=== PATIENT | male | born 1960 | race Caucasian/White ===

== ENCOUNTER 2017-11-01 12:51 | Inpatient (IN) | payer BC, OTHER ==
[~2017-11-01] VITALS: Ht 170.2 cm; Wt 85.1 kg
[2017-11-01 13:54] LABS: Basophils # (auto) 0.1 uL; Eosinophils # (auto) 0.2 uL; Lymphocytes # (auto) 0.9 uL; Monocytes % (auto) 9.3 % (0.0-12.0); Neutrophils % (auto) 80.4 % (37.0-80.0); Nucleated Red Blood Cells % 0.1 %
[2017-11-01 13:56] LABS: Basophils % (auto) 0.9 % (0.0-2.0); Eosinophils % (auto) 1.5 % (0.0-7.0); Hematocrit 38.7 % (41.0-53.0); Lymphocytes % (auto) 7.9 % (10.0-50.0); Mean Corpuscular Hemoglobin 22.6 pg (28.0-32.0); Mean Corpuscular Volume 72.8 fL (80.0-100.0); Neutrophils # (auto) 8.9 uL; Platelet Count (auto) 256 10^3/uL (140-450); Red Blood Cells 5.32 10^6/uL (4.5-5.90); Red Cell Distribution Width 20.2 % (11.8-14.3)
[2017-11-01 14:11] LABS: Albumin 3.6 g/dL (3.4-5.0); BUN/Creatinine Ratio 15.1; Bilirubin, Total 0.6 mg/dL (0.2-1.0); Potassium 4.7 mmol/L (3.5-5.1); Total Protein 8.1 g/dL (6.4-8.2)
[2017-11-01] MEDS ORDERED: cefTRIAXone 1GM/10ml StH20 or NS KIT IVpush IV ONE (15:45)
[2017-11-01] MEDS ORDERED: metroNIDAZOLE 500MG/100ML 100 ML IV ONE (15:45)
[2017-11-01] MEDS ORDERED: MORPHINE SULF INJ 2 MG/ML SYRINGE 1ML IV ONE (15:45)
[2017-11-01] MEDS ORDERED: ONDANSETRON HCL 4 MG/2 ML VIAL IV ONE (16:00)
[2017-11-01 16:05] LABS: INR 1.07 (0.9-1.15); Partial Thromboplastin Time 29.8 sec (23.78-33.04); Prothrombin Time 11.4 sec (9.27-12.13)
[2017-11-01 17:18] LABS: Urine Bacteria NONE SEEN /hpf (None Seen); Urine Blood Negative /uL (Negative); Urine Hyaline Cast FEW /lpf (0 - 2); Urine Mucus FEW (None Seen); Urine Specific Gravity 1.023 (1.001-1.035); Urine WBC 1 /hpf (0 - 3)
[2017-11-01] MEDS ORDERED: MORPHINE SULF INJ 2 MG/ML SYRINGE 1ML IV PRN (17:45)
[2017-11-01] MEDS ORDERED: NITROGLYCERIN 0.4 MG SL TAB SL PRN (17:45)
[2017-11-01] MEDS ORDERED: PANTOPRAZOLE 40 MG/10 ML VIAL IV ONE (17:45)
[2017-11-01] MEDS ORDERED: LEVOFLOXACIN 500MG 100 ML IV ONE (17:45)
[2017-11-01] MEDS ORDERED: LORazepam 2MG/ML-1ML VIAL IV PRN ×2 (17:45→18:00)
[2017-11-01] MEDS ORDERED: SODIUM CHLORIDE 0.9% 1,000 ML IV ONE (17:45)
[2017-11-01] MEDS ORDERED: THIAMINE 100mg/ml INJ (200mg/2ml VIAL) IV ONE (18:00)
[2017-11-01] MEDS: SODIUM CHLORIDE 0.9% 1,000 ML IV SCH (18:45)
[2017-11-01] MEDS ORDERED: ACETAMINOPHEN 325 MG TAB PO ONE ×2 (19:00→19:45)
[2017-11-01] MEDS: metroNIDAZOLE 500MG/100ML 100 ML IV SCH (22:18)
[2017-11-01] MEDS: MORPHINE SULF INJ 2 MG/ML SYRINGE 1ML IV PRN (22:23)
[2017-11-02] MEDS: SODIUM CHLORIDE 0.9% 1,000 ML IV SCH ×2 (01:47→10:46)
[2017-11-02] MEDS ORDERED: MORPHINE SULFATE 4 MG/ML SYR/VIAL ONE (05:44)
[2017-11-02] MEDS: metroNIDAZOLE 500MG/100ML 100 ML IV SCH ×3 (05:49→20:54)
[2017-11-02] MEDS: MORPHINE SULF INJ 2 MG/ML SYRINGE 1ML IV PRN ×4 (05:49→20:52)
[2017-11-02 05:53] LABS: Basophils # (auto) 0.2 uL; Lymphocytes # (auto) 0.5 uL; White Blood Cell 10.5 10^3/uL (4.4-10.8)
[2017-11-02 05:57] LABS: Basophils % (auto) 1.6 % (0.0-2.0); Eosinophils # (auto) 0 uL; Eosinophils % (auto) 0.4 % (0.0-7.0); Hematocrit 34.2 % (41.0-53.0); Hemoglobin 10.7 g/dL (13.5-17.5); Lymphocytes % (auto) 4.9 % (10.0-50.0); Mean Corpuscular Hemoglobin 23.2 pg (28.0-32.0); Mean Corpuscular Hgb Conc. 31.3 g/dL (32.0-36.0); Mean Corpuscular Volume 74.2 fL (80.0-100.0); Monocytes # (auto) 0.8 uL; Monocytes % (auto) 7.4 % (0.0-12.0); Neutrophils % (auto) 85.7 % (37.0-80.0); Nucleated Red Blood Cells % 0.1 %; Platelet Count (auto) 224 10^3/uL (140-450); Red Blood Cells 4.61 10^6/uL (4.5-5.90)
[2017-11-02 06:04] LABS: Red Cell Distribution Width 20.4 % (11.8-14.3)
[2017-11-02 06:15] LABS: BUN/Creatinine Ratio 15.1; Bilirubin, Total 0.7 mg/dL (0.2-1.0); Potassium 4.3 mmol/L (3.5-5.1); Total Protein 6.9 g/dL (6.4-8.2)
[2017-11-02] MEDS: LEVOFLOXACIN 500MG 100 ML IV SCH (10:46)
[2017-11-02] MEDS: THIAMINE 100mg/ml INJ (200mg/2ml VIAL) IV SCH (10:46)
[2017-11-02] MEDS: PANTOPRAZOLE 40 MG/10 ML VIAL IV SCH (10:46)
[2017-11-02] MEDS: PROMETHAZINE HCL 25 MG/ML 1ML IV PRN ×2 (10:46→16:30)
[2017-11-02] MEDS ORDERED: D5W/SOD CHL 0.45%/KCL 40MEQ 1,000 ML IV ONE (11:00)
[2017-11-02] MEDS ORDERED: SOD CHL 0.45% 1,000 ML IV ONE (11:00)
[2017-11-02] MEDS ORDERED: TPN PER PHARMACY 0 ML IV SCH (11:15)
[2017-11-02 11:39] LABS: Magnesium 2.5 mg/dL (1.6-2.6); Phosphorus 2.2 mg/dL (2.5-4.90)
[2017-11-02] MEDS ORDERED: SODIUM PHOSPHATES 24 MEQ in SODIUM CHL 0.9% 100 ML IV ONE (13:30)
[2017-11-02] MEDS ORDERED: LIDOCAINE 1% (LOCAL ANESTH.) PF 5ml SDV ID ONE (15:30)
[2017-11-02 18:15] VITALS: BP 134/78
[2017-11-02 20:00] VITALS: BP 135/83
[2017-11-02] MEDS ORDERED: PPN PER PHARMACY IV NR ×7 (20:00)
[2017-11-02] MEDS: SODIUM CHLOR 0.9% PF (SALINE LOCK) 10ML VIAL/SYR IV SCH (20:57)
[2017-11-02 22:00] VITALS: BP_SYST 114; BP_SYST 135; BP_DIAS 63; BP_DIAS 83
[2017-11-02] MEDS: InsuLIN REG 1unit/0.01ml Soln (100units/ml) SC SCH (23:32)
[2017-11-02] MEDS: ACCU-CHEK COMFORT CURVE STRIP VI SCH (23:32)
[2017-11-03] MEDS ORDERED: DEXTROSE (50%) 50ML SYRG IV SCH
[2017-11-03] MEDS: MORPHINE SULF INJ 2 MG/ML SYRINGE 1ML IV PRN ×4 (00:44→21:59)
[2017-11-03] MEDS ORDERED: ACETAMINOPHEN 650 mg PER 20 mL UD PO ONE (01:00)
[2017-11-03] MEDS: metroNIDAZOLE 500MG/100ML 100 ML IV SCH ×3 (05:46→21:39)
[2017-11-03 05:51] VITALS: BP 151/69
[2017-11-03] MEDS: InsuLIN REG 1unit/0.01ml Soln (100units/ml) SC SCH ×3 (06:04→18:15)
[2017-11-03] MEDS: ACCU-CHEK COMFORT CURVE STRIP VI SCH ×3 (06:05→18:15)
[2017-11-03] MEDS ORDERED: POVIDONE IODINE 10 % TOPICAL OINT 30GM TOP ONE (06:39)
[2017-11-03] MEDS ORDERED: ONDANSETRON HCL 4 MG/2 ML VIAL IV ONE (07:00)
[2017-11-03] MEDS ORDERED: NALOXONE HCL 0.4 MG/ML VIAL IV PRN (07:00)
[2017-11-03] MEDS ORDERED: FLUMAZENIL 0.1 MG/ML INJ 10ML MDV IV ONE (07:00)
[2017-11-03] MEDS ORDERED: ePHEDrine SULFATE 50 MG/ML AMP IV PRN (07:00)
[2017-11-03] MEDS ORDERED: METOCLOPRAMIDE HCL 5MG/ml INJ 2ml VIAL IV ONE (07:00)
[2017-11-03] MEDS ORDERED: LABETALOL HCL 5 MG/ML 4ML SYRINGE IV PRN (07:00)
[2017-11-03] MEDS ORDERED: KETOROLAC TROMETH 30 MG/ML 1ML VIAL IV ONE (07:00)
[2017-11-03] MEDS ORDERED: ePHEDrine SULFATE 50 MG/ML AMP ONE (07:05)
[2017-11-03] MEDS ORDERED: LIDOCAINE HCL 2 %PF INJ 10ML AMP IJ ONE (07:05)
[2017-11-03] MEDS ORDERED: ROCURONIUM 10MG/ML 10ML VIAL IV ONE (07:05)
[2017-11-03] MEDS ORDERED: fentaNYL CITRATE 100 MCG/2 ML VL ONE ×2 (07:05→08:16)
[2017-11-03] MEDS ORDERED: PROPOFOL 10 MG/ML 20 ML IV ONE (07:05)
[2017-11-03] MEDS ORDERED: MIDAZOLAM HCL 1MG/1ML-2 ML VIAL ONE (07:05)
[2017-11-03] MEDS ORDERED: LEVOFLOXACIN 500MG 100 ML IV ONE (07:21)
[2017-11-03] MEDS ORDERED: GLYCOPYRROLATE 0.2 MG/ML 1ML VIAL ONE (09:08)
[2017-11-03] MEDS ORDERED: NEOSTIGMINE 1 MG/ML INJ (10mg/10ML VIAL) ONE (09:08)
[2017-11-03] MEDS: HYDROmorphone HCL 2 MG/ML VL IV PRN ×4 (09:50→10:32)
[2017-11-03] MEDS ORDERED: IPRATROPIUM BROM 0.5 MG/2.5ML INH SOL ONE (09:59)
[2017-11-03] MEDS ORDERED: ALBUTEROL SULF 2.5 MG/0.5ML(0.5%) NEB SOLN ONE (09:59)
[2017-11-03] MEDS: SODIUM CHLOR 0.9% PF (SALINE LOCK) 10ML VIAL/SYR IV SCH ×2 (10:00→21:39)
[2017-11-03] MEDS: PANTOPRAZOLE 40 MG/10 ML VIAL IV SCH (10:00)
[2017-11-03] MEDS: THIAMINE 100mg/ml INJ (200mg/2ml VIAL) IV SCH (10:00)
[2017-11-03] MEDS ORDERED: IPRATROPIUM BROM 0.5 MG/2.5ML INH SOL NEB ONE (10:00)
[2017-11-03] MEDS ORDERED: ALBUTEROL SULF 2.5 MG/0.5ML(0.5%) NEB SOLN NEB ONE (10:00)
[2017-11-03] MEDS: LEVOFLOXACIN 500MG 100 ML IV SCH (10:00)
[2017-11-03 11:01] LABS: Albumin 2.5 g/dL (3.4-5.0); Bilirubin, Total 0.4 mg/dL (0.2-1.0); Calcium 7.8 mg/dL (8.5-10.1); Magnesium 2.5 mg/dL (1.6-2.6); Phosphorus 2.9 mg/dL (2.5-4.90); Pre Albumin 8.2 mg/dL (20.0-40.0); Total Protein 6.4 g/dL (6.4-8.2)
[2017-11-03 12:03] LABS: Eosinophils # (auto) 0 uL; Lymphocytes # (auto) 0.2 uL
[2017-11-03 12:05] LABS: Basophils # (auto) 0 uL; Basophils % (auto) 0.5 % (0.0-2.0); Eosinophils % (auto) 0.1 % (0.0-7.0); Hematocrit 33.3 % (41.0-53.0); Hemoglobin 10.4 g/dL (13.5-17.5); Lymphocytes % (auto) 2.4 % (10.0-50.0); Mean Corpuscular Hgb Conc. 31.3 g/dL (32.0-36.0); Mean Corpuscular Volume 73.3 fL (80.0-100.0); Monocytes # (auto) 0.9 uL; Monocytes % (auto) 8.7 % (0.0-12.0); Neutrophils % (auto) 88.3 % (37.0-80.0); Platelet Count (auto) 237 10^3/uL (140-450); Red Blood Cells 4.54 10^6/uL (4.5-5.90); Red Cell Distribution Width 19.9 % (11.8-14.3); White Blood Cell 10.2 10^3/uL (4.4-10.8)
[2017-11-03 13:00] VITALS: BP 122/76
[2017-11-03] MEDS ORDERED: LABETALOL HCL 5 MG/ML ML 20ML VIAL IV PRN (15:30)
[2017-11-03] MEDS: KETOROLAC TROMETH 30 MG/ML 1ML VIAL IV PRN (16:54)
[2017-11-03 17:00] VITALS: BP 150/81
[2017-11-03] MEDS: POTASSIUM ACETATE IV NR ×9 (20:05)
[2017-11-03] MEDS: FAT EMULSION IV NR ×9 (20:05)
[2017-11-03] MEDS: SODIUM PHOSPHATES IV NR ×9 (20:05)
[2017-11-03] MEDS: [UNRECOGNIZED DRUG - OTHER] IV NR ×9 (20:05)
[2017-11-03 22:00] VITALS: BP 146/78
[2017-11-04] MEDS: ACCU-CHEK COMFORT CURVE STRIP VI SCH ×4 (00:18→18:00)
[2017-11-04] MEDS: InsuLIN REG 1unit/0.01ml Soln (100units/ml) SC SCH ×4 (00:18→18:00)
[2017-11-04] MEDS: KETOROLAC TROMETH 30 MG/ML 1ML VIAL IV PRN (00:38)
[2017-11-04] MEDS: MORPHINE SULF INJ 2 MG/ML SYRINGE 1ML IV PRN ×4 (03:08→19:46)
[2017-11-04 05:00] VITALS: BP 144/75
[2017-11-04] MEDS: metroNIDAZOLE 500MG/100ML 100 ML IV SCH ×3 (06:06→22:36)
[2017-11-04] MEDS ORDERED: MORPHINE SULFATE 4 MG/ML SYR/VIAL ONE (07:00)
[2017-11-04 07:31] LABS: Basophils # (auto) 0 uL; Basophils % (auto) 0.3 % (0.0-2.0); Eosinophils # (auto) 0.2 uL; Lymphocytes # (auto) 0.4 uL; Monocytes # (auto) 0.9 uL; Monocytes % (auto) 10.9 % (0.0-12.0); Neutrophils # (auto) 6.9 uL
[2017-11-04 07:33] LABS: Eosinophils % (auto) 2.4 % (0.0-7.0); Hematocrit 29.5 % (41.0-53.0); Hemoglobin 9.2 g/dL (13.5-17.5); Lymphocytes % (auto) 4.3 % (10.0-50.0); Mean Corpuscular Hemoglobin 22.9 pg (28.0-32.0); Mean Corpuscular Hgb Conc. 31.3 g/dL (32.0-36.0); Neutrophils % (auto) 82.1 % (37.0-80.0); Platelet Count (auto) 207 10^3/uL (140-450); Red Blood Cells 4.03 10^6/uL (4.5-5.90); White Blood Cell 8.4 10^3/uL (4.4-10.8)
[2017-11-04 07:58] LABS: Albumin 2.2 g/dL (3.4-5.0); BUN/Creatinine Ratio 13.5; Bilirubin, Total 0.3 mg/dL (0.2-1.0); Calcium 7.7 mg/dL (8.5-10.1); Magnesium 2.4 mg/dL (1.6-2.6); Phosphorus 2.6 mg/dL (2.5-4.90); Potassium 3.6 mmol/L (3.5-5.1); Total Protein 5.9 g/dL (6.4-8.2)
[2017-11-04 08:20] LABS: Red Cell Distribution Width 20.1 % (11.8-14.3)
[2017-11-04 09:00] VITALS: BP 141/74
[2017-11-04] MEDS: THIAMINE 100mg/ml INJ (200mg/2ml VIAL) IV SCH (09:49)
[2017-11-04] MEDS: LEVOFLOXACIN 500MG 100 ML IV SCH (09:50)
[2017-11-04] MEDS: SODIUM CHLOR 0.9% PF (SALINE LOCK) 10ML VIAL/SYR IV SCH ×2 (09:50→22:36)
[2017-11-04] MEDS: PANTOPRAZOLE 40 MG/10 ML VIAL IV SCH (09:50)
[2017-11-04 13:00] VITALS: BP 154/84
[2017-11-04 17:00] VITALS: BP 142/81
[2017-11-04] MEDS: FAT EMULSION IV NR ×9 (20:00)
[2017-11-04] MEDS: SODIUM PHOSPHATES IV NR ×9 (20:00)
[2017-11-04] MEDS: [UNRECOGNIZED DRUG - OTHER] IV NR ×9 (20:00)
[2017-11-04] MEDS: POTASSIUM ACETATE IV NR ×9 (20:00)
[2017-11-04] MEDS ORDERED: TPN PER PHARMACY IV NR ×9 (20:00)
[2017-11-04 22:00] VITALS: BP 138/81
[2017-11-05] MEDS: ACCU-CHEK COMFORT CURVE STRIP VI SCH ×4 (00:10→18:21)
[2017-11-05] MEDS: MORPHINE SULF INJ 2 MG/ML SYRINGE 1ML IV PRN ×6 (00:10→21:30)
[2017-11-05] MEDS: InsuLIN REG 1unit/0.01ml Soln (100units/ml) SC SCH ×4 (00:25→18:21)
[2017-11-05 05:00] VITALS: BP 147/82
[2017-11-05] MEDS: metroNIDAZOLE 500MG/100ML 100 ML IV SCH ×3 (06:34→21:06)
[2017-11-05 07:14] LABS: Albumin 2.1 g/dL (3.4-5.0); BUN/Creatinine Ratio 12.6; Bilirubin, Total 0.2 mg/dL (0.2-1.0); Calcium 7.6 mg/dL (8.5-10.1); Magnesium 2.6 mg/dL (1.6-2.6); Phosphorus 2.6 mg/dL (2.5-4.90); Potassium 4.1 mmol/L (3.5-5.1); Total Protein 5.9 g/dL (6.4-8.2)
[2017-11-05 07:32] LABS: Eosinophils # (auto) 0.4 uL; Hemoglobin 8.8 g/dL (13.5-17.5); Monocytes # (auto) 0.9 uL; Neutrophils % (auto) 79.4 % (37.0-80.0)
[2017-11-05 07:35] LABS: Basophils # (auto) 0.1 uL; Basophils % (auto) 0.6 % (0.0-2.0); Eosinophils % (auto) 4.6 % (0.0-7.0); Hematocrit 28.2 % (41.0-53.0); Lymphocytes # (auto) 0.4 uL; Lymphocytes % (auto) 4.7 % (10.0-50.0); Mean Corpuscular Hemoglobin 22.6 pg (28.0-32.0); Mean Corpuscular Volume 72.7 fL (80.0-100.0); Monocytes % (auto) 10.7 % (0.0-12.0); Platelet Count (auto) 228 10^3/uL (140-450); Red Blood Cells 3.88 10^6/uL (4.5-5.90); Red Cell Distribution Width 19.8 % (11.8-14.3); White Blood Cell 8.8 10^3/uL (4.4-10.8)
[2017-11-05 09:11] VITALS: BP 145/84
[2017-11-05] MEDS: LEVOFLOXACIN 500MG 100 ML IV SCH (10:56)
[2017-11-05] MEDS: SODIUM CHLOR 0.9% PF (SALINE LOCK) 10ML VIAL/SYR IV SCH ×2 (10:56→21:07)
[2017-11-05] MEDS: THIAMINE 100mg/ml INJ (200mg/2ml VIAL) IV SCH (10:56)
[2017-11-05] MEDS: PANTOPRAZOLE 40 MG/10 ML VIAL IV SCH (10:56)
[2017-11-05 12:42] VITALS: BP 155/91
[2017-11-05] MEDS ORDERED: ENALAPRILAT 1.25 MG/ML-1ML VIAL IV PRN (15:45)
[2017-11-05 17:00] VITALS: BP 154/87
[2017-11-05] MEDS: KETOROLAC TROMETH 30 MG/ML 1ML VIAL IV PRN (18:26)
[2017-11-05] MEDS ORDERED: [UNRECOGNIZED DRUG - NUTRITION] IV NR ×9 (20:00)
[2017-11-05 22:00] VITALS: BP 142/80
[2017-11-06] MEDS: InsuLIN REG 1unit/0.01ml Soln (100units/ml) SC SCH ×5 (00:10→23:59)
[2017-11-06] MEDS: ACCU-CHEK COMFORT CURVE STRIP VI SCH ×5 (00:10→23:59)
[2017-11-06] MEDS: KETOROLAC TROMETH 30 MG/ML 1ML VIAL IV PRN ×4 (00:11→20:10)
[2017-11-06] MEDS: MORPHINE SULF INJ 2 MG/ML SYRINGE 1ML IV PRN ×4 (04:26→23:00)
[2017-11-06 05:14] VITALS: BP 139/81
[2017-11-06] MEDS: metroNIDAZOLE 500MG/100ML 100 ML IV SCH ×3 (06:46→21:44)
[2017-11-06 07:49] VITALS: BP 159/84
[2017-11-06 08:00] VITALS: BP 159/84
[2017-11-06 08:03] LABS: Basophils # (auto) 0 uL; Basophils % (auto) 0.6 % (0.0-2.0); Eosinophils # (auto) 0.5 uL; Lymphocytes # (auto) 0.4 uL; Nucleated Red Blood Cells % 0.2 %; Red Blood Cells 4.01 10^6/uL (4.5-5.90); Red Cell Distribution Width 19.6 % (11.8-14.3)
[2017-11-06 08:05] LABS: Eosinophils % (auto) 5.6 % (0.0-7.0); Lymphocytes % (auto) 4.4 % (10.0-50.0); Mean Corpuscular Hemoglobin 22.6 pg (28.0-32.0); Mean Corpuscular Hgb Conc. 31.2 g/dL (32.0-36.0); Mean Corpuscular Volume 72.2 fL (80.0-100.0); Monocytes # (auto) 0.7 uL; Monocytes % (auto) 8.9 % (0.0-12.0); Neutrophils # (auto) 6.8 uL; Neutrophils % (auto) 80.5 % (37.0-80.0); Platelet Count (auto) 245 10^3/uL (140-450); White Blood Cell 8.4 10^3/uL (4.4-10.8)
[2017-11-06 08:19] LABS: Albumin 2.2 g/dL (3.4-5.0); BUN/Creatinine Ratio 17.8; Bilirubin, Total 0.1 mg/dL (0.2-1.0); Magnesium 2.6 mg/dL (1.6-2.6); Phosphorus 3.5 mg/dL (2.5-4.90); Potassium 4.1 mmol/L (3.5-5.1); Total Protein 5.9 g/dL (6.4-8.2)
[2017-11-06] MEDS: LEVOFLOXACIN 500MG 100 ML IV SCH (09:53)
[2017-11-06] MEDS: PANTOPRAZOLE 40 MG/10 ML VIAL IV SCH (09:53)
[2017-11-06] MEDS: THIAMINE 100mg/ml INJ (200mg/2ml VIAL) IV SCH (09:53)
[2017-11-06] MEDS: SODIUM CHLOR 0.9% PF (SALINE LOCK) 10ML VIAL/SYR IV SCH ×2 (10:40→21:44)
[2017-11-06 12:00] VITALS: BP 151/82
[2017-11-06 17:30] VITALS: BP 144/81
[2017-11-06] MEDS ORDERED: TPN PER PHARMACY IV NR ×8 (20:00)
[2017-11-06 22:00] VITALS: BP 145/81
[2017-11-07] MEDS: KETOROLAC TROMETH 30 MG/ML 1ML VIAL IV PRN ×2 (03:15→20:31)
[2017-11-07 05:00] VITALS: BP 135/83
[2017-11-07] MEDS: metroNIDAZOLE 500MG/100ML 100 ML IV SCH ×3 (06:17→22:02)
[2017-11-07] MEDS: InsuLIN REG 1unit/0.01ml Soln (100units/ml) SC SCH ×4 (06:19→23:53)
[2017-11-07] MEDS: ACCU-CHEK COMFORT CURVE STRIP VI SCH ×4 (06:19→23:49)
[2017-11-07 07:23] LABS: Albumin 2.1 g/dL (3.4-5.0); BUN/Creatinine Ratio 17.8; Bilirubin, Total 0.1 mg/dL (0.2-1.0); Calcium 7.9 mg/dL (8.5-10.1); Magnesium 2.4 mg/dL (1.6-2.6); Phosphorus 3.7 mg/dL (2.5-4.90); Potassium 3.9 mmol/L (3.5-5.1); Total Protein 5.6 g/dL (6.4-8.2)
[2017-11-07 07:30] LABS: Hemoglobin 8.9 g/dL (13.5-17.5); White Blood Cell 8.9 10^3/uL (4.4-10.8)
[2017-11-07 07:32] LABS: Hematocrit 28.5 % (41.0-53.0); Mean Corpuscular Hemoglobin 22.7 pg (28.0-32.0); Mean Corpuscular Hgb Conc. 31.1 g/dL (32.0-36.0); Platelet Count (auto) 259 10^3/uL (140-450); Red Blood Cells 3.91 10^6/uL (4.5-5.90); Red Cell Distribution Width 19.9 % (11.8-14.3)
[2017-11-07 07:46] LABS: Basophils % (manual) 0 (0.0-2.0); Blast Cells 0; Metamyelocytes % 0; Myelocytes % 0; Promyelocytes % 0; Reactive Lymphocytes 0
[2017-11-07 08:24] VITALS: BP 148/87
[2017-11-07] MEDS: LEVOFLOXACIN 500MG 100 ML IV SCH (09:31)
[2017-11-07] MEDS: THIAMINE 100mg/ml INJ (200mg/2ml VIAL) IV SCH (09:31)
[2017-11-07] MEDS: PANTOPRAZOLE 40 MG/10 ML VIAL IV SCH (09:31)
[2017-11-07] MEDS: SODIUM CHLOR 0.9% PF (SALINE LOCK) 10ML VIAL/SYR IV SCH ×2 (09:31→22:02)
[2017-11-07 12:05] VITALS: BP 148/96
[2017-11-07 12:34] LABS: Band Neutrophils % (manual) 1; Eosinophils % (manual) 2 (0-7); Lymphocytes % (manual) 5 (10.0-50.0); Monocytes % (manual) 4 (0-12)
[2017-11-07 17:04] VITALS: BP 146/84
[2017-11-07] MEDS ORDERED: TPN PER PHARMACY IV NR ×8 (20:00)
[2017-11-07 22:00] VITALS: BP 155/92
[2017-11-08 05:00] VITALS: BP 148/91
[2017-11-08] MEDS: metroNIDAZOLE 500MG/100ML 100 ML IV SCH ×3 (06:43→21:45)
[2017-11-08] MEDS: ACCU-CHEK COMFORT CURVE STRIP VI SCH (06:43)
[2017-11-08] MEDS: InsuLIN REG 1unit/0.01ml Soln (100units/ml) SC SCH (06:55)
[2017-11-08 08:51] LABS: Hemoglobin 9.4 g/dL (13.5-17.5); Mean Corpuscular Hgb Conc. 31.6 g/dL (32.0-36.0)
[2017-11-08 08:54] LABS: Hematocrit 29.7 % (41.0-53.0); Mean Corpuscular Hemoglobin 22.9 pg (28.0-32.0); Mean Corpuscular Volume 72.5 fL (80.0-100.0); Platelet Count (auto) 307 10^3/uL (140-450); Red Cell Distribution Width 19.9 % (11.8-14.3); White Blood Cell 9.6 10^3/uL (4.4-10.8)
[2017-11-08 09:02] LABS: Basophils % (manual) 0 (0.0-2.0); Blast Cells 0; Promyelocytes % 0; Reactive Lymphocytes 0
[2017-11-08 09:08] LABS: Albumin 2.2 g/dL (3.4-5.0); BUN/Creatinine Ratio 15.1; Bilirubin, Total 0.2 mg/dL (0.2-1.0); Magnesium 2.5 mg/dL (1.6-2.6); Phosphorus 3.7 mg/dL (2.5-4.90); Pre Albumin 13.6 mg/dL (20.0-40.0); Total Protein 5.7 g/dL (6.4-8.2)
[2017-11-08 09:21] VITALS: BP 142/86
[2017-11-08] MEDS: PANTOPRAZOLE 40 MG/10 ML VIAL IV SCH (09:45)
[2017-11-08] MEDS: THIAMINE 100mg/ml INJ (200mg/2ml VIAL) IV SCH (09:45)
[2017-11-08] MEDS: LEVOFLOXACIN 500MG 100 ML IV SCH (09:45)
[2017-11-08] MEDS: SODIUM CHLOR 0.9% PF (SALINE LOCK) 10ML VIAL/SYR IV SCH ×2 (09:45→21:45)
[2017-11-08] MEDS: PANTOPRAZOLE 40 MG TAB PO SCH (10:00)
[2017-11-08 13:17] VITALS: BP 132/88
[2017-11-08 13:49] LABS: Band Neutrophils % (manual) 2; Eosinophils % (manual) 3 (0-7); Lymphocytes % (manual) 10 (10.0-50.0); Monocytes % (manual) 4 (0-12)
[2017-11-08 13:50] LABS: Metamyelocytes % 1; Myelocytes % 1
[2017-11-08] MEDS: MULTIPLE VITAMINS W/ MINERALS TAB PO SCH (14:16)
[2017-11-08 17:00] VITALS: BP 135/87
[2017-11-08 22:00] VITALS: BP 137/80
[2017-11-09 05:00] VITALS: BP 140/86
[2017-11-09] MEDS: metroNIDAZOLE 500MG/100ML 100 ML IV SCH ×2 (05:58→14:00)
[2017-11-09 07:24] LABS: Basophils # (auto) 0.1 uL; Eosinophils # (auto) 0.3 uL; Eosinophils % (auto) 3.2 % (0.0-7.0); Hemoglobin 9.7 g/dL (13.5-17.5); Lymphocytes # (auto) 0.6 uL; Monocytes # (auto) 0.8 uL; Monocytes % (auto) 7.2 % (0.0-12.0); White Blood Cell 10.5 10^3/uL (4.4-10.8)
[2017-11-09 07:26] LABS: Basophils % (auto) 0.6 % (0.0-2.0); Hematocrit 31.1 % (41.0-53.0); Lymphocytes % (auto) 5.5 % (10.0-50.0); Mean Corpuscular Hemoglobin 22.6 pg (28.0-32.0); Mean Corpuscular Hgb Conc. 31.2 g/dL (32.0-36.0); Mean Corpuscular Volume 72.4 fL (80.0-100.0); Neutrophils # (auto) 8.8 uL; Neutrophils % (auto) 83.5 % (37.0-80.0); Platelet Count (auto) 356 10^3/uL (140-450)
[2017-11-09 07:32] LABS: Red Cell Distribution Width 20.1 % (11.8-14.3)
[2017-11-09 09:00] VITALS: BP 136/70
[2017-11-09] MEDS: SODIUM CHLOR 0.9% PF (SALINE LOCK) 10ML VIAL/SYR IV SCH (09:42)
[2017-11-09] MEDS: MULTIPLE VITAMINS W/ MINERALS TAB PO SCH (09:42)
[2017-11-09] MEDS: PANTOPRAZOLE 40 MG TAB PO SCH (09:42)
[2017-11-09] MEDS: LEVOFLOXACIN 500MG 100 ML IV SCH (09:42)
[2017-11-09] MEDS ORDERED: HYDROcodone-ACET 5/325MG TAB PO PRN (10:00)
[2017-11-09] MEDS ORDERED: METR500T14 PO (10:57)
[2017-11-09] MEDS ORDERED: PROM25TA5 OR (10:57)
[2017-11-09] MEDS ORDERED: LEVO-28 PO (10:57)
[2017-11-09 12:26] VITALS: BP 131/70
== END 2017-11-09 14:25 | disposition home or self-care (01) | DRG 853 ==
LOC: ER 12:51 → TELE 12:52 → TELE-CENTR 11-02 17:59 → CENTRAL 11-04 10:58
PROVIDERS: ADMIT Internal Medicine; ATTEND Internal Medicine
PROC: 02HV33Z Insertion of Infusion Device into Superior Vena Cava, Percutaneous Approach (ICD-10-PCS; 2017-11-02)
PROC: 0DBN0ZZ Excision of Sigmoid Colon, Open Approach (ICD-10-PCS; 2017-11-03)
PROC: 0D1N0ZP Bypass Sigmoid Colon to Rectum, Open Approach (ICD-10-PCS; principal; 2017-11-03 07:21)
DX: A41.9 Sepsis, unspecified organism (principal); N17.0 Acute kidney failure with tubular necrosis; K57.20 Diverticulitis of large intestine with perforation and abscess without bleeding; K29.80 Duodenitis without bleeding; E66.01 Morbid (severe) obesity due to excess calories; E78.5 Hyperlipidemia, unspecified; F90.9 Attention-deficit hyperactivity disorder, unspecified type; I11.9 Hypertensive heart disease without heart failure; I25.10 Atherosclerotic heart disease of native coronary artery without angina pectoris; K64.9 Unspecified hemorrhoids; R65.20 Severe sepsis without septic shock; K59.00 Constipation, unspecified; N28.1 Cyst of kidney, acquired; G89.29 Other chronic pain; R73.9 Hyperglycemia, unspecified; D50.9 Iron deficiency anemia, unspecified; Z87.891 Personal history of nicotine dependence; Z87.11 Personal history of peptic ulcer disease; Z93.3 Colostomy status; Z88.5 Allergy status to narcotic agent; Z88.0 Allergy status to penicillin; Z88.8 Allergy status to other drugs, medicaments and biological substances
CPT/HCPCS: 36415; 36569; 71045; 74176; 80053; 81001; 81002; 82040; 82150; 82962; 83036; 83690; 83735; 84100; 84478; 85007; 85025; 85027; 85610; 85730; 86850; 86900; 86901; 86920; 87070; 87075; 93005; 94640; 96365; 96367; 96375; 97110; 97116; 97163; 97530; C9113; J0696; J1815; J1885; J1956; J2250; J2405; J2704; J3490

== ENCOUNTER 2017-11-17 22:02 | Inpatient (IN) | payer BC, OTHER ==
[~2017-11-17] VITALS: Ht 170.2 cm; Wt 78.7 kg
[~2017-11-17 22:02] MED LIST: LEVO-28 PO; METR500T14 PO; PROM25TA5 OR
[2017-11-17 22:49] LABS: Mean Corpuscular Hemoglobin 22.6 pg (28.0-32.0); Neutrophils # (auto) 13.3 uL
[2017-11-17 22:51] LABS: Basophils # (auto) 0.1 uL; Basophils % (auto) 0.5 % (0.0-2.0); Eosinophils # (auto) 0.2 uL; Eosinophils % (auto) 1.1 % (0.0-7.0); Hematocrit 35.5 % (41.0-53.0); Hemoglobin 11.1 g/dL (13.5-17.5); Lymphocytes # (auto) 0.4 uL; Lymphocytes % (auto) 2.5 % (10.0-50.0); Mean Corpuscular Hgb Conc. 31.3 g/dL (32.0-36.0); Mean Corpuscular Volume 72.2 fL (80.0-100.0); Monocytes # (auto) 0.9 uL; Neutrophils % (auto) 89.9 % (37.0-80.0); Red Blood Cells 4.92 10^6/uL (4.5-5.90); Red Cell Distribution Width 19.8 % (11.8-14.3); White Blood Cell 14.7 10^3/uL (4.4-10.8)
[2017-11-17 22:57] LABS: Platelet Count (auto) 823 10^3/uL (140-450)
[2017-11-17 23:04] LABS: BUN/Creatinine Ratio 15.8; Calcium 8.4 mg/dL (8.5-10.1); Potassium 4.1 mmol/L (3.5-5.1)
[2017-11-17 23:07] LABS: Bilirubin, Total 0.3 mg/dL (0.2-1.0); Total Protein 7.4 g/dL (6.4-8.2)
[2017-11-17 23:49] LABS: Magnesium 2.2 mg/dL (1.6-2.6)
[2017-11-17 23:51] LABS: Amylase 118 U/L (25-115); Lipase 670 U/L (73-393)
[2017-11-18] MEDS ORDERED: VANCOMYCIN 1GM/250ML 250 ML IV ONE (00:45)
[2017-11-18] MEDS ORDERED: SODIUM CHLORIDE 0.9% 1,000 ML IV ONE (00:45)
[2017-11-18] MEDS ORDERED: cefTRIAXone 1GM/10ml IVPUSH 10 ML IV ONE (00:45)
[2017-11-18 01:46] LABS: INR 1.16 (0.9-1.15); Partial Thromboplastin Time 29.8 sec (23.78-33.04); Prothrombin Time 12.3 sec (9.27-12.13)
[2017-11-18] MEDS ORDERED: ONDANSETRON HCL 4 MG/2 ML VIAL IV PRN (03:30)
[2017-11-18] MEDS ORDERED: MORPHINE SULFATE 4 MG/ML SYR/VIAL IV PRN (03:30)
[2017-11-18] MEDS ORDERED: SODIUM CHLORIDE 0.9% 1,000 ML IV SCH (03:30)
[2017-11-18 04:20] LABS: Urine Bacteria NONE SEEN /hpf (None Seen); Urine Blood Negative /uL (Negative); Urine Mucus FEW (None Seen); Urine Specific Gravity 1.023 (1.001-1.035); Urine Sperm PRESENT /hpf (None Seen); Urine WBC 1 /hpf (0 - 3)
[2017-11-18 04:30] VITALS: BP 116/69
[2017-11-18 05:00] VITALS: BP 116/69
[2017-11-18] MEDS: metroNIDAZOLE 500MG/100ML 100 ML IV SCH ×3 (05:40→21:25)
[2017-11-18] MEDS ORDERED: AMLO5TAB2 PO (06:23)
[2017-11-18] MEDS ORDERED: LISI10TA6 PO (06:23)
[2017-11-18] MEDS ORDERED: PANT40TA2 PO (06:23)
[2017-11-18] MEDS ORDERED: ATOR10TA52 PO (06:23)
[2017-11-18] MEDS ORDERED: CELE200C PO (06:23)
[2017-11-18 09:00] VITALS: BP 115/62
[2017-11-18] MEDS ORDERED: LEVOFLOXACIN 500MG 100 ML IV SCH (10:00)
[2017-11-18] MEDS: PANTOPRAZOLE 40 MG/10 ML VIAL IV SCH (10:07)
[2017-11-18] MEDS: amLODIPine BESYLATE 5 MG TAB PO SCH (10:09)
[2017-11-18 12:00] VITALS: BP 124/71
[2017-11-18 16:58] VITALS: BP 105/69
[2017-11-18] MEDS: SODIUM CHLORIDE 0.9% 1,000 ML IV SCH (18:04)
[2017-11-18 21:25] VITALS: BP 124/69
[2017-11-18] MEDS: TEMAZEPAM 15 MG CAP PO PRN (21:25)
[2017-11-18] MEDS ORDERED: ATORVASTATIN 20 MG TAB PO SCH (22:00)
[2017-11-18] MEDS ORDERED: VANCOMYCIN PER PHARMACY 0 MG IV SCH (22:30)
[2017-11-19] MEDS: SODIUM CHLORIDE 0.9% 1,000 ML IV SCH ×2 (01:40→16:51)
[2017-11-19 04:32] VITALS: BP 127/69
[2017-11-19] MEDS: metroNIDAZOLE 500MG/100ML 100 ML IV SCH ×3 (05:43→21:30)
[2017-11-19 06:51] LABS: Basophils # (auto) 0.1 uL; Eosinophils # (auto) 0.2 uL; Eosinophils % (auto) 2.4 % (0.0-7.0); Lymphocytes # (auto) 0.5 uL; Lymphocytes % (auto) 5.6 % (10.0-50.0); Red Blood Cells 4.07 10^6/uL (4.5-5.90)
[2017-11-19 06:54] LABS: Basophils % (auto) 0.7 % (0.0-2.0); Hematocrit 29.9 % (41.0-53.0); Hemoglobin 9.4 g/dL (13.5-17.5); Mean Corpuscular Hemoglobin 23.2 pg (28.0-32.0); Mean Corpuscular Hgb Conc. 31.5 g/dL (32.0-36.0); Mean Corpuscular Volume 73.5 fL (80.0-100.0); Monocytes # (auto) 0.9 uL; Monocytes % (auto) 9.9 % (0.0-12.0); Neutrophils # (auto) 7.7 uL; Neutrophils % (auto) 81.4 % (37.0-80.0); Platelet Count (auto) 570 10^3/uL (140-450); Red Cell Distribution Width 19.5 % (11.8-14.3); White Blood Cell 9.5 10^3/uL (4.4-10.8)
[2017-11-19 07:08] LABS: Albumin 2.4 g/dL (3.4-5.0); Bilirubin, Total 0.3 mg/dL (0.2-1.0); Calcium 8.2 mg/dL (8.5-10.1); Total Protein 6.2 g/dL (6.4-8.2)
[2017-11-19 08:00] VITALS: BP 121/81
[2017-11-19 09:20] LABS: Albumin 2.5 g/dL (3.4-5.0); BUN/Creatinine Ratio 10.6; Bilirubin, Total 0.3 mg/dL (0.2-1.0); Calcium 8.2 mg/dL (8.5-10.1); Potassium 3.6 mmol/L (3.5-5.1); Total Protein 6.6 g/dL (6.4-8.2)
[2017-11-19] MEDS: amLODIPine BESYLATE 5 MG TAB PO SCH (09:45)
[2017-11-19] MEDS: PANTOPRAZOLE 40 MG/10 ML VIAL IV SCH (09:45)
[2017-11-19 12:00] VITALS: BP 118/73
[2017-11-19] MEDS: VANCOMYCIN 1GM/250ML 250 ML IV SCH (13:14)
[2017-11-19] MEDS ORDERED: IOHEXOL 300 MG/ML 100ML BOTTLE IJ ONE (13:26)
[2017-11-19 16:00] VITALS: BP 126/80
[2017-11-19 20:00] VITALS: BP 125/66
[2017-11-19] MEDS: TEMAZEPAM 15 MG CAP PO PRN (21:30)
[2017-11-19 21:55] VITALS: BP 108/70
[2017-11-20] MEDS: VANCOMYCIN 1GM/250ML 250 ML IV SCH ×2 (00:43→13:02)
[2017-11-20] MEDS: SODIUM CHLORIDE 0.9% 1,000 ML IV SCH ×2 (03:19→18:19)
[2017-11-20 04:34] VITALS: BP 124/70
[2017-11-20] MEDS: metroNIDAZOLE 500MG/100ML 100 ML IV SCH ×3 (05:21→22:30)
[2017-11-20 05:51] LABS: Basophils # (auto) 0.1 uL; Eosinophils # (auto) 0.4 uL; Lymphocytes # (auto) 0.7 uL; Mean Corpuscular Volume 72.8 fL (80.0-100.0); Monocytes # (auto) 0.7 uL
[2017-11-20 05:55] LABS: Basophils % (auto) 1.3 % (0.0-2.0); Eosinophils % (auto) 5.1 % (0.0-7.0); Hematocrit 28.9 % (41.0-53.0); Hemoglobin 9.2 g/dL (13.5-17.5); Lymphocytes % (auto) 9.5 % (10.0-50.0); Mean Corpuscular Hemoglobin 23.3 pg (28.0-32.0); Monocytes % (auto) 10.1 % (0.0-12.0); Neutrophils # (auto) 5.4 uL; Platelet Count (auto) 534 10^3/uL (140-450); Red Blood Cells 3.97 10^6/uL (4.5-5.90); Red Cell Distribution Width 19.7 % (11.8-14.3); White Blood Cell 7.3 10^3/uL (4.4-10.8)
[2017-11-20 06:14] LABS: Albumin 2.5 g/dL (3.4-5.0); BUN/Creatinine Ratio 11.5; Bilirubin, Total 0.3 mg/dL (0.2-1.0); Calcium 8.1 mg/dL (8.5-10.1); Potassium 4.1 mmol/L (3.5-5.1); Total Protein 6.2 g/dL (6.4-8.2)
[2017-11-20 08:26] VITALS: BP 124/76
[2017-11-20] MEDS: amLODIPine BESYLATE 5 MG TAB PO SCH (09:43)
[2017-11-20] MEDS: PANTOPRAZOLE 40 MG TAB PO SCH (09:43)
[2017-11-20 13:00] VITALS: BP 116/78
[2017-11-20] MEDS ORDERED: cefTRIAXone 1GM/10ml IVPUSH 10 ML IV ONE (13:45)
[2017-11-20] MEDS ORDERED: TPN PER PHARMACY 0 ML IV SCH (14:15)
[2017-11-20 14:46] LABS: Magnesium 2.3 mg/dL (1.6-2.6)
[2017-11-20] MEDS ORDERED: POTASSIUM PHOSPHATE 22 MEQ in SODIUM CHL 0.9% 100 ML IV ONE (15:30)
[2017-11-20] MEDS: ALPRAZolam 0.25 MG TAB PO PRN (16:00)
[2017-11-20 17:11] VITALS: BP 126/80
[2017-11-20] MEDS: InsuLIN REG 1unit/0.01ml Soln (100units/ml) SC SCH (20:00)
[2017-11-20] MEDS: ACCU-CHEK COMFORT CURVE STRIP VI SCH (20:00)
[2017-11-20] MEDS ORDERED: DEXTROSE (50%) 50ML SYRG IV SCH (20:00)
[2017-11-20] MEDS: CLINIMIX PER PHARMACY IV NR (21:03)
[2017-11-20 22:00] VITALS: BP 125/78
[2017-11-20] MEDS: TEMAZEPAM 15 MG CAP PO PRN (23:57)
[2017-11-21] MEDS: VANCOMYCIN 1GM/250ML 250 ML IV SCH (01:00)
[2017-11-21] MEDS: ALPRAZolam 0.25 MG TAB PO PRN ×3 (01:17→17:36)
[2017-11-21 05:00] VITALS: BP 121/70
[2017-11-21 05:49] LABS: Basophils # (auto) 0.1 uL; Basophils % (auto) 2.3 % (0.0-2.0); Eosinophils # (auto) 0.4 uL; Eosinophils % (auto) 7.3 % (0.0-7.0); Hematocrit 31.3 % (41.0-53.0); Hemoglobin 9.7 g/dL (13.5-17.5); Lymphocytes # (auto) 0.7 uL; Lymphocytes % (auto) 12.6 % (10.0-50.0); Mean Corpuscular Hemoglobin 22.4 pg (28.0-32.0); Mean Corpuscular Hgb Conc. 30.9 g/dL (32.0-36.0); Mean Corpuscular Volume 72.6 fL (80.0-100.0); Monocytes # (auto) 0.6 uL; Monocytes % (auto) 10.4 % (0.0-12.0); Neutrophils # (auto) 3.7 uL; Neutrophils % (auto) 67.4 % (37.0-80.0); Nucleated Red Blood Cells % 0.1 %; Platelet Count (auto) 533 10^3/uL (140-450); Red Blood Cells 4.31 10^6/uL (4.5-5.90); Red Cell Distribution Width 19.1 % (11.8-14.3); White Blood Cell 5.4 10^3/uL (4.4-10.8)
[2017-11-21] MEDS: InsuLIN REG 1unit/0.01ml Soln (100units/ml) SC SCH ×4 (05:49→17:35)
[2017-11-21] MEDS: ACCU-CHEK COMFORT CURVE STRIP VI SCH ×4 (05:50→17:35)
[2017-11-21 05:52] LABS: Albumin 2.5 g/dL (3.4-5.0); BUN/Creatinine Ratio 11.8; Bilirubin, Total 0.2 mg/dL (0.2-1.0); Calcium 8.1 mg/dL (8.5-10.1); Magnesium 2.6 mg/dL (1.6-2.6); Phosphorus 4.2 mg/dL (2.5-4.90); Potassium 3.9 mmol/L (3.5-5.1); Pre Albumin 16.3 mg/dL (20.0-40.0); Total Protein 6.3 g/dL (6.4-8.2)
[2017-11-21] MEDS: metroNIDAZOLE 500MG/100ML 100 ML IV SCH ×3 (07:02→23:02)
[2017-11-21] MEDS: SODIUM CHLORIDE 0.9% 1,000 ML IV SCH ×2 (07:25→21:00)
[2017-11-21 09:00] VITALS: BP 130/77
[2017-11-21] MEDS: cefTRIAXone 1GM/10ml IVPUSH 10 ML IV SCH (09:12)
[2017-11-21] MEDS: PANTOPRAZOLE 40 MG TAB PO SCH (09:13)
[2017-11-21 13:00] VITALS: BP 116/75
[2017-11-21] MEDS ORDERED: VANCOMYCIN 1,250 MG in D5W 5% 250 ML IV SCH (14:00)
[2017-11-21] MEDS ORDERED: LIDOCAINE 1% (LOCAL ANESTH.) PF 5ml SDV ID ONE (16:15)
[2017-11-21 17:00] VITALS: BP 122/87
[2017-11-21] MEDS: VANCOMYCIN 1,250 MG in D5W 5% 250 ML IV SCH (17:54)
[2017-11-21] MEDS: CLINIMIX PER PHARMACY IV NR (19:49)
[2017-11-21] MEDS ORDERED: TPN PER PHARMACY IV NR ×8 (20:00)
[2017-11-21 21:50] VITALS: BP 110/71
[2017-11-21] MEDS: SODIUM CHLOR 0.9% PF (SALINE LOCK) 10ML VIAL/SYR IV SCH (22:00)
[2017-11-21] MEDS: TEMAZEPAM 15 MG CAP PO PRN (23:02)
[2017-11-22] MEDS: ALPRAZolam 0.25 MG TAB PO PRN ×3 (01:20→17:20)
[2017-11-22 04:52] VITALS: BP 128/76
[2017-11-22] MEDS: InsuLIN REG 1unit/0.01ml Soln (100units/ml) SC SCH ×4 (06:00→18:20)
[2017-11-22] MEDS: ACCU-CHEK COMFORT CURVE STRIP VI SCH ×4 (06:00→18:20)
[2017-11-22] MEDS: metroNIDAZOLE 500MG/100ML 100 ML IV SCH ×3 (07:43→22:00)
[2017-11-22] MEDS: VANCOMYCIN 1,250 MG in D5W 5% 250 ML IV SCH ×2 (07:44→17:19)
[2017-11-22 07:54] LABS: Albumin 2.6 g/dL (3.4-5.0); BUN/Creatinine Ratio 11.9; Bilirubin, Total 0.3 mg/dL (0.2-1.0); Magnesium 2.5 mg/dL (1.6-2.6); Phosphorus 3.5 mg/dL (2.5-4.90); Potassium 3.9 mmol/L (3.5-5.1); Total Protein 6.4 g/dL (6.4-8.2)
[2017-11-22 09:17] VITALS: BP 139/78
[2017-11-22] MEDS: cefTRIAXone 1GM/10ml IVPUSH 10 ML IV SCH (09:23)
[2017-11-22] MEDS: SODIUM CHLOR 0.9% PF (SALINE LOCK) 10ML VIAL/SYR IV SCH ×2 (09:24→22:00)
[2017-11-22] MEDS: PANTOPRAZOLE 40 MG TAB PO SCH (09:25)
[2017-11-22 12:49] VITALS: BP 135/74
[2017-11-22 17:12] VITALS: BP 137/93
[2017-11-22] MEDS: KETOROLAC TROMETH 30 MG/ML 1ML VIAL IV PRN ×2 (17:20→23:00)
[2017-11-22] MEDS ORDERED: TPN PER PHARMACY IV NR ×9 (20:00)
[2017-11-22] MEDS: SODIUM CHLORIDE 0.9% 1,000 ML IV SCH (20:00)
[2017-11-22 22:00] VITALS: BP 124/77
[2017-11-23] MEDS: InsuLIN REG 1unit/0.01ml Soln (100units/ml) SC SCH ×4 (00:30→18:00)
[2017-11-23] MEDS: ALPRAZolam 0.25 MG TAB PO PRN ×3 (01:37→21:31)
[2017-11-23] MEDS: VANCOMYCIN 1,250 MG in D5W 5% 250 ML IV SCH ×3 (05:00→15:33)
[2017-11-23 05:12] VITALS: BP 123/75
[2017-11-23] MEDS: ACCU-CHEK COMFORT CURVE STRIP VI SCH ×4 (06:00→18:00)
[2017-11-23] MEDS: metroNIDAZOLE 500MG/100ML 100 ML IV SCH ×3 (06:00→21:30)
[2017-11-23 06:07] LABS: Basophils # (auto) 0.1 uL; Eosinophils # (auto) 0.3 uL; Lymphocytes # (auto) 0.6 uL; White Blood Cell 5.2 10^3/uL (4.4-10.8)
[2017-11-23 06:09] LABS: Basophils % (auto) 1.5 % (0.0-2.0); Eosinophils % (auto) 6.3 % (0.0-7.0); Hematocrit 32.7 % (41.0-53.0); Hemoglobin 10.2 g/dL (13.5-17.5); Mean Corpuscular Hemoglobin 22.9 pg (28.0-32.0); Mean Corpuscular Hgb Conc. 31.3 g/dL (32.0-36.0); Monocytes # (auto) 0.5 uL; Monocytes % (auto) 9.6 % (0.0-12.0); Neutrophils # (auto) 3.7 uL; Neutrophils % (auto) 71.6 % (37.0-80.0); Nucleated Red Blood Cells % 0.1 %; Platelet Count (auto) 422 10^3/uL (140-450); Red Blood Cells 4.47 10^6/uL (4.5-5.90); Red Cell Distribution Width 19.4 % (11.8-14.3)
[2017-11-23 06:27] LABS: Albumin 2.6 g/dL (3.4-5.0); BUN/Creatinine Ratio 11.5; Bilirubin, Total 0.2 mg/dL (0.2-1.0); Calcium 8.2 mg/dL (8.5-10.1); Magnesium 2.8 mg/dL (1.6-2.6); Phosphorus 3.4 mg/dL (2.5-4.90); Total Protein 6.4 g/dL (6.4-8.2)
[2017-11-23 09:00] VITALS: BP 141/83
[2017-11-23] MEDS: cefTRIAXone 1GM/10ml IVPUSH 10 ML IV SCH (09:29)
[2017-11-23] MEDS: PANTOPRAZOLE 40 MG TAB PO SCH (09:29)
[2017-11-23] MEDS: SODIUM CHLOR 0.9% PF (SALINE LOCK) 10ML VIAL/SYR IV SCH (10:00)
[2017-11-23 13:15] VITALS: BP 123/72
[2017-11-23] MEDS: SODIUM CHLORIDE 0.9% 1,000 ML IV SCH (14:16)
[2017-11-23 17:00] VITALS: BP 128/72
[2017-11-23 20:00] VITALS: BP 124/76
[2017-11-23] MEDS ORDERED: TPN PER PHARMACY IV NR ×8 (20:00)
[2017-11-23] MEDS: TEMAZEPAM 15 MG CAP PO PRN (21:32)
[2017-11-23 22:00] VITALS: BP 130/77
[2017-11-24] VITALS (7 sets, daily range): BP systolic 125–156; BP diastolic 74–91
[2017-11-24] MEDS: metroNIDAZOLE 500MG/100ML 100 ML IV SCH ×3 (05:23→21:41)
[2017-11-24] MEDS: InsuLIN REG 1unit/0.01ml Soln (100units/ml) SC SCH ×4 (05:24→18:08)
[2017-11-24] MEDS: SODIUM CHLOR 0.9% PF (SALINE LOCK) 10ML VIAL/SYR IV SCH ×3 (05:24→21:48)
[2017-11-24] MEDS: VANCOMYCIN 1,250 MG in D5W 5% 250 ML IV SCH ×2 (05:24→23:11)
[2017-11-24] MEDS: ACCU-CHEK COMFORT CURVE STRIP VI SCH ×4 (05:25→18:08)
[2017-11-24] MEDS: SODIUM CHLORIDE 0.9% 1,000 ML IV SCH ×2 (05:34→15:07)
[2017-11-24 07:20] LABS: Albumin 2.6 g/dL (3.4-5.0); BUN/Creatinine Ratio 10.4; Bilirubin, Total 0.2 mg/dL (0.2-1.0); Magnesium 2.4 mg/dL (1.6-2.6); Phosphorus 3.3 mg/dL (2.5-4.90); Potassium 3.9 mmol/L (3.5-5.1); Total Protein 6.1 g/dL (6.4-8.2)
[2017-11-24] MEDS: PANTOPRAZOLE 40 MG TAB PO SCH (10:51)
[2017-11-24] MEDS: cefTRIAXone 1GM/10ml IVPUSH 10 ML IV SCH (10:51)
[2017-11-24] MEDS ORDERED: TPN PER PHARMACY IV NR ×10 (20:00)
[2017-11-24] MEDS: ALPRAZolam 0.25 MG TAB PO PRN (20:47)
[2017-11-24] MEDS: TEMAZEPAM 15 MG CAP PO PRN (21:40)
[2017-11-25] MEDS: ACCU-CHEK COMFORT CURVE STRIP VI SCH ×4 (00:10→18:23)
[2017-11-25] MEDS: InsuLIN REG 1unit/0.01ml Soln (100units/ml) SC SCH ×4 (00:15→18:00)
[2017-11-25 04:59] VITALS: BP 137/77
[2017-11-25] MEDS: SODIUM CHLORIDE 0.9% 1,000 ML IV SCH ×2 (05:15→18:24)
[2017-11-25] MEDS: metroNIDAZOLE 500MG/100ML 100 ML IV SCH ×3 (06:20→22:26)
[2017-11-25] MEDS ORDERED: GASTROGRAFIN 30 ML SOL ONE (06:29)
[2017-11-25] MEDS ORDERED: IOHEXOL 300 MG/ML 100ML BOTTLE IJ ONE (06:30)
[2017-11-25 07:24] LABS: Albumin 2.6 g/dL (3.4-5.0); BUN/Creatinine Ratio 12.6; Bilirubin, Total 0.2 mg/dL (0.2-1.0); Calcium 8.1 mg/dL (8.5-10.1); Magnesium 2.5 mg/dL (1.6-2.6); Phosphorus 3.1 mg/dL (2.5-4.90); Potassium 4.3 mmol/L (3.5-5.1); Total Protein 6.4 g/dL (6.4-8.2)
[2017-11-25] MEDS ORDERED: TPN PER PHARMACY 0 ML IV SCH (08:45)
[2017-11-25 09:00] VITALS: BP 115/61
[2017-11-25] MEDS: cefTRIAXone 1GM/10ml IVPUSH 10 ML IV SCH (10:19)
[2017-11-25] MEDS: PANTOPRAZOLE 40 MG TAB PO SCH (10:19)
[2017-11-25] MEDS: SODIUM CHLOR 0.9% PF (SALINE LOCK) 10ML VIAL/SYR IV SCH ×2 (10:27→22:26)
[2017-11-25 13:00] VITALS: BP 124/70
[2017-11-25] MEDS: VANCOMYCIN 1,250 MG in D5W 5% 250 ML IV SCH (16:02)
[2017-11-25] MEDS ORDERED: FAT EMULSION IV NR ×9 (20:00)
[2017-11-25] MEDS ORDERED: SODIUM PHOSPHATES IV NR ×9 (20:00)
[2017-11-25] MEDS ORDERED: [UNRECOGNIZED DRUG - OTHER] IV NR ×9 (20:00)
[2017-11-25] MEDS ORDERED: POTASSIUM ACETATE IV NR ×9 (20:00)
[2017-11-25 20:13] VITALS: BP 118/67
[2017-11-25 22:00] VITALS: BP 118/67
[2017-11-26 05:00] VITALS: BP 108/60
[2017-11-26] MEDS: InsuLIN REG 1unit/0.01ml Soln (100units/ml) SC SCH ×3 (05:43→12:00)
[2017-11-26] MEDS: ACCU-CHEK COMFORT CURVE STRIP VI SCH ×3 (05:43→12:02)
[2017-11-26] MEDS: VANCOMYCIN 1,250 MG in D5W 5% 250 ML IV SCH (05:43)
[2017-11-26] MEDS: SODIUM CHLORIDE 0.9% 1,000 ML IV SCH (05:43)
[2017-11-26] MEDS: metroNIDAZOLE 500MG/100ML 100 ML IV SCH ×2 (06:00→14:00)
[2017-11-26 07:49] LABS: Albumin 2.8 g/dL (3.4-5.0); Bilirubin, Total 0.2 mg/dL (0.2-1.0); Calcium 8.2 mg/dL (8.5-10.1); Potassium 4.2 mmol/L (3.5-5.1); Total Protein 6.5 g/dL (6.4-8.2)
[2017-11-26 08:00] VITALS: BP 134/79
[2017-11-26 09:00] VITALS: BP 134/79
[2017-11-26] MEDS: SODIUM CHLOR 0.9% PF (SALINE LOCK) 10ML VIAL/SYR IV SCH (11:06)
[2017-11-26] MEDS: PANTOPRAZOLE 40 MG TAB PO SCH (11:06)
[2017-11-26] MEDS: cefTRIAXone 1GM/10ml IVPUSH 10 ML IV SCH (11:06)
[2017-11-26 11:15] LABS: Magnesium 2.3 mg/dL (1.6-2.6); Phosphorus 2.8 mg/dL (2.5-4.90)
[2017-11-26 13:00] VITALS: BP 130/86
[2017-11-26] MEDS ORDERED: TPN PER PHARMACY IV NR ×9 (20:00)
== END 2017-11-26 15:00 | disposition home or self-care (01) | DRG 871 ==
LOC: ER 22:02 → OVERFLOW 22:03 → WEST WING 11-18 04:31
PROVIDERS: ADMIT Nurse Practitioner; ATTEND Internal Medicine
PROC: 02HV33Z Insertion of Infusion Device into Superior Vena Cava, Percutaneous Approach (ICD-10-PCS; principal; 2017-11-21)
DX: A41.02 Sepsis due to Methicillin resistant Staphylococcus aureus (principal); N17.0 Acute kidney failure with tubular necrosis; K57.32 Diverticulitis of large intestine without perforation or abscess without bleeding; I10 Essential (primary) hypertension; E78.5 Hyperlipidemia, unspecified; Z82.49 Family history of ischemic heart disease and other diseases of the circulatory system; Z82.3 Family history of stroke; Z82.0 Family history of epilepsy and other diseases of the nervous system; E86.0 Dehydration; Z90.49 Acquired absence of other specified parts of digestive tract; Z98.0 Intestinal bypass and anastomosis status
CPT/HCPCS: 36415; 36569; 71045; 74176; 74177; 80053; 80202; 81001; 82040; 82150; 82962; 83036; 83605; 83690; 83735; 83880; 84100; 84478; 84484; 85025; 85610; 85652; 85730; 86141; 87040; 87077; 87081; 87186; 93005; 96361; 96365; 96367; 96375; C9113; J0696; J1815; J1885; J1956; J3490; J7060